=== PATIENT | male | born 1940 | race Caucasian/White ===

== ENCOUNTER 2019-02-01 13:34 | Observation (INO) | payer MEDICARE, OTHER, SELFPAY ==
[2019-02-01] VITALS (9 sets, daily range): BP systolic 143–171; BP diastolic 52–82; PULSE 20–58; RESP 12–22; TEMP 36.5–36.8; O2SAT 97–100; BMI 20.3
--- NOTE | 2019-02-01 13:41 | DI.CT.S_ITS ---
PROCEDURE: CT HEAD/BRAIN WO CON INDICATIONS: Code stroke. Possible TPA TECHNIQUE: Noncontrast 4.5 mm thick angled axial sections acquired from the foramen magnum to the vertex, with coronal and sagittal reformats. For radiation dose reduction, the following was used: automated exposure control, adjustment of mA and/or kV according to patient size. COMPARISON: [facility], MR, MR BRAIN WITHOUT CONTRAST, 11/21/2018, 17:06. FINDINGS: Image quality: Excellent. CSF spaces: Basal cisterns are patent. No extra-axial fluid collections. The ventricles are symmetric in size and shape. Brain: No intracranial bleeds or masses. There is a minimal cerebral volume loss for age, with resultant ventricular and sulcal prominence. There are minimal periventricular and deep white matter chronic small vessel ischemic changes. There is intracranial internal carotid artery atherosclerosis. Skull and face: Calvarium and visualized facial bones appear intact, without suspicious lesions. Sinuses: Visualized sinuses and mastoids are clear. IMPRESSION: CT head without acute intracranial abnormalities. Stable age-related senescent changes. Findings were verbally communicated with Dr. Gold of the emergency department at 1404hrs. Dictated by: Casper Skelton M.D. on 02/01/2019 at 14:02 Approved by: Casper Skelton M.D. on 02/01/2019 at 14:06
[2019-02-01 13:59] LABS: Add Manual Diff / Slide Review NO; Basophils Absolute Auto 100 /uL (0-100); Basophils Percent Auto 1.3 % (0-2); Eosinophils Absolute Auto 100 /uL (0-450); Eosinophils Percent Auto 2.2 % (2-4); Hematocrit 39.8 % (41-53); Hemoglobin 13.8 g/dL (13.5-17.5); Lymphocytes Absolute Auto 1200 /uL (1100-4500); Lymphocytes Percent Auto 21.7 % (25-40); Mean Corpuscular HGB Conc 34.6 % (30-36); Mean Corpuscular Hemoglobin 30.9 PG (26-34); Mean Corpuscular Volume 89.4 fL (80-100); Monocytes Absolute Auto 400 /uL (0-900); Neutrophils Absolute Auto 3600 /uL (1500-7000); Neutrophils Percent Auto 67.8 % (50-75); Platelet Count 143 X10^3/uL (150-400); Red Blood Cell Count 4.45 X10^6/uL (4.5-5.9); Red Cell Distribution Width 13.2 % (11.6-14.8); White Blood Cell Count 5.3 X10^3/uL (4.5-11.0)
--- NOTE | 2019-02-01 14:08 | ED.DIZZY ---
HPI - Dizziness General Chief Complaint: Dizziness Stated Complaint: Light headed and dizzy Time Seen by Provider: 02/01/19 13:36 Source: patient and family Mode of arrival: ambulatory Limitations: no limitations History of Present Illness HPI Narrative: 78-year-old male with history of hypertension, hyperlipidemia and GERD presents with a chief complaint of sudden-onset significant dizziness and ataxia which started at about 10 30 this afternoon. He denies any other problems such as blurred vision, trouble with speech, confusion or weakness of his extremities. He states that he is likely more dizzy upon standing but it does not improve much when he lays flat. He states he feels like he is drunk and when he walks he is listing to the side. Patient is BEFAST positive and therefore activated as a code stroke. Patient denies any recent illness such as runny nose, sneezing or cough. He denies any nausea, vomiting or diarrhea. He denies any new medications or change in his diet. He denies any recent trauma, even minor bump to the head. MD complaint: dizziness Onset (ago): hour(s) Timing: sudden onset Description: room spinning, off-balance and difficulty walking History of similar episodes: No History of trauma: No Severity: mild Relieving factors: nothing Exacerbating factors: position Associated symptoms: ataxia Related Data Home Medications Medication Instructions Recorded Confirmed losartan 50 mg PO QDAY #0 03/01/12 02/01/19 simvastatin 40 mg PO HS #0 03/01/12 02/01/19 levothyroxine 112 mcg PO DAILY 02/01/19 02/01/19 Allergies Allergy/AdvReac Type Severity Reaction Status Date / Time No Known Drug Allergies Allergy Verified 02/01/19 17:03 Review of Systems Constitutional Denies chills, Denies fever(s), Denies lethargy and Denies weakness Eyes Denies change in vision, Denies eye discharge, Denies irritation and Denies loss of vision ENT Ears, Nose, Mouth, and Throat: Denies change in voice, Reports dizziness, Denies neck pain and Denies sore throat Cardiovascular Denies chest pain, Denies irregular heart rhythm, Denies lightheadedness, Denies palpitations, Denies dyspnea, Denies dyspnea on exertion and Denies orthopnea Respiratory Denies cough, Denies dyspnea, Denies dyspnea on exertion and Denies wheezing Gastrointestinal Gastrointestinal: Denies abdominal pain, Denies change in bowel habits, Denies diarrhea, Denies nausea and Denies vomiting Genitourinary Denies hematuria, Denies flank pain, Denies urinary incontinence and Denies urinary urgency Musculoskeletal Reports abnormal gait and Denies neck pain Integumentary/Breasts Denies pruritus, Denies erythema, Denies rash and Denies wounds Neurologic Reports abnormal gait, Denies confusion, Reports dizziness, Denies loss of vision and Denies weakness Psychiatric Denies anxiety, Denies confusion, Denies depression, Denies homicidal ideation and Denies suicidal ideation Endocrine Denies palpitations Hematologic/Lymphatic Denies easy bruising Allergic/Immunologic Denies wheezing [facility] Medical History (Updated 02/01/19 @ 19:05 by Manda Lund RN) Hyperlipidemia (Acute) Hypertension (Acute) Hypothyroidism (acquired) (Acute) Surgical History (Updated 02/01/19 @ 18:36 by Narendra Gillespie MD) History of appendectomy (Acute) Family History (Updated 02/01/19 @ 18:36 by Narendra Gillespie MD) Mother Dementia Myocardial infarct Father No problems noted. Social History household members: spouse Smoking Status: Former smoker alcohol intake: current Social History household members: spouse Smoking Status: Former smoker alcohol intake: current Exam Narrative Exam Narrative: GENERAL: 78-year-old male appears younger than stated age, in mild distress HEAD: Atraumatic. Normocephalic. No temporal or scalp tenderness. EYES: Pupils equal round and reactive. Extraocular motions intact. No scleral icterus. No injection or drainage. ENT: Nose without bleeding, purulent drainage or septal hematoma. Throat without erythema, tonsillar hypertrophy or exudate. Uvula midline. Airway patent. NECK: Trachea midline. No JVD or lymphadenopathy. Supple, nontender, no meningeal signs. CARDIOVASCULAR: Regular rate and rhythm without murmurs, gallops, or rubs. RESPIRATORY: Clear to auscultation. Breath sounds equal bilaterally. No wheezes, rales, or rhonchi. GASTROINTESTINAL: Abdomen soft, non-tender, nondistended. No hepato-splenomegaly, or palpable masses. No guarding. EXTREMITIES: No clubbing, cyanosis, or edema. No joint tenderness, effusion, or edema noted. BACK: Nontender without deformity or crepitance. No flank tenderness. NEURO: AOx3. SKIN: No rash or erythema. Initial Vital Signs Initial Vital Signs: Vital Signs Temperature 98.2 F 02/01/19 13:35 Pulse Rate 58 L 02/01/19 13:35 Respiratory Rate 16 02/01/19 13:35 Blood Pressure 160/67 H 02/01/19 13:35 Pulse Oximetry 99 02/01/19 13:35 Course Orders Ordered: ED Orders 02/02/19 04:59 Magnesium Routine Aspirin (Aspirin Ec) 81 mg PO BEDTIME [facility]REM Last Admin: 02/01/19 21:25 Dose: Not Given Enoxaparin Sodium (Lovenox) 40 mg SUBCUT DAILY [facility] Hydrochlorothiazide (Hydrochlorothiazide) 25 mg PO DAILY [facility] Sodium Chloride (Normal Saline 0.9%) 1,000 mls @ 150 mls/hr IV CONT [facility]REM Last Infusion: 02/01/19 19:02 Dose: 150 mls/hr Infusion: 02/01/19 16:44 Dose: 150 mls/hr Infusion: 02/01/19 15:00 Dose: 0 mls/hr Admin: 02/01/19 14:39 Dose: 150 mls/hr Dextrose/Sodium Chloride (Dextrose 5%-0.9% Ns) 1,000 mls @ 75 mls/hr IV CONT [facility]REM Last Admin: 02/01/19 19:42 Dose: 75 mls/hr Levothyroxine Sodium (Synthroid) 112 mcg PO 0600 [facility] Last Admin: 02/02/19 05:22 Dose: 112 mcg Losartan Potassium (Cozaar) 50 mg PO DAILY [facility] Ondansetron HCl (Zofran) 4 mg IV Q8HR PRN PRN Reason: Nausea And Vomiting Pantoprazole Sodium (Protonix) 20 mg PO 0600 [facility] Last Admin: 02/02/19 05:22 Dose: 20 mg Simvastatin (Zocor) 40 mg PO BEDTIME [facility]REM Last Admin: 02/01/19 21:26 Dose: 40 mg Sodium Chloride (Normal Saline 0.9% Flush) 10 ml IV PRN PRN PRN Reason: Flush Last Admin: 02/01/19 21:00 Dose: 10 ml Sodium Chloride (Normal Saline 0.9% Flush) 10 ml IV BID [facility]REM Discontinued Medications Aspirin (Aspirin Chew) 324 mg PO NOW ONE Stop: 02/01/19 14:14 Last Admin: 02/01/19 14:39 Dose: 324 mg Meclizine HCl (Antivert) 25 mg PO NOW ONE Stop: 02/01/19 16:50 Last Admin: 02/01/19 17:04 Dose: 25 mg Reevaluation(s) Reevaluation #1: patient continues to feel as if he is drunk while walking, listing to the left Consultations Consultation #1: upon completion of CT/MRI and HINTS exam, call to [facility] Neuro whom shares the opinion that the ongoing trouble ambulating cannot be ignored and recommends admission with tele and echo Vital Signs - 8 hr 02/02/19 05:19 02/02/19 07:25 Temperature 97.4 F L 97.8 F Pulse Rate 47 L 51 L Respiratory Rate 15 16 Blood Pressure 140/60 138/61 Pulse Oximetry 99 99 MDM - Dizziness Lab Data Result diagrams: 02/01/19 13:49 02/01/19 13:49 Lab Results 02/01/19 02/01/19 02/01/19 Range/Units 13:49 13:49 13:49 WBC 5.3 (4.5-11.0) X10^3/uL RBC 4.45 L (4.5-5.9) X10^6/uL Hgb 13.8 (13.5-17.5) g/dL Hct 39.8 L (41-53) % MCV 89.4 (80-100) fL MCH 30.9 (26-34) PG MCHC 34.6 (30-36) % RDW 13.2 (11.6-14.8) % Plt Count 143 L (150-400) X10^3/uL Neut % (Auto) 67.8 (50-75) % Lymph % (Auto) 21.7 L (25-40) % [place] % (Auto) 7.0 (3-14) % Eos % (Auto) 2.2 (2-4) % Baso % (Auto) 1.3 (0-2) % Neut # (Auto) 3600 (2124-7903) /uL Lymph # (Auto) 1200 (3219-7977) /uL [place] # (Auto) 400 (0-900) /uL Eos # (Auto) 100 (0-450) /uL Baso # (Auto) 100 (0-100) /uL PT 12.4 (10.1-12.7) SECONDS INR 1.1 (0.9-1.3) APTT 31 (26.4-36.2) SECONDS Sodium 138 (137-145) mmol/L Potassium 3.9 (3.4-5.1) mmol/L Chloride 104 (98-107) mmol/L Carbon Dioxide 27 (22-32) mmol/L BUN 20 (9-20) mg/dL Creatinine 1.00 (0.66-1.25) mg/dL Estimated GFR > 60.0 (>60) mL/min BUN/Creatinine Ratio 20.0 (6-22) Glucose 126 H (80-110) mg/dL Calcium 9.7 (8.4-10.2) mg/dL Magnesium (1.6-2.3) mg/dL TSH (0.47-4.68) uIU/mL Urine Opiates Screen (Negative) Ur Oxycodone Screen (Negative) Urine Methadone Screen (Negative) Ur Barbiturates Screen (Negative) U Tricyclic Antidepress (Negative) Ur Phencyclidine Scrn (Negative) Ur Amphetamines Screen (Negative) U Methamphetamines Scrn (Negative) Ur MDMA Scrn (Ecstasy) (Negative) U Benzodiazepines Scrn (Negative) Urine Cocaine Screen (Negative) U Marijuana (THC) Screen (Negative) 02/01/19 02/01/19 02/01/19 Range/Units 13:49 13:49 17:51 WBC (4.5-11.0) X10^3/uL RBC (4.5-5.9) X10^6/uL Hgb (13.5-17.5) g/dL Hct (41-53) % MCV (80-100) fL MCH (26-34) PG MCHC (30-36) % RDW (11.6-14.8) % Plt Count (150-400) X10^3/uL Neut % (Auto) (50-75) % Lymph % (Auto) (25-40) % [place] % (Auto) (3-14) % Eos % (Auto) (2-4) % Baso % (Auto) (0-2) % Neut # (Auto) (8904-3426) /uL Lymph # (Auto) (8490-0069) /uL [place] # (Auto) (0-900) /uL Eos # (Auto) (0-450) /uL Baso # (Auto) (0-100) /uL PT (10.1-12.7) SECONDS INR (0.9-1.3) APTT (26.4-36.2) SECONDS Sodium (137-145) mmol/L Potassium (3.4-5.1) mmol/L Chloride (98-107) mmol/L Carbon Dioxide (22-32) mmol/L BUN (9-20) mg/dL Creatinine (0.66-1.25) mg/dL Estimated GFR (>60) mL/min BUN/Creatinine Ratio (6-22) Glucose (80-110) mg/dL Calcium (8.4-10.2) mg/dL Magnesium 2.0 (1.6-2.3) mg/dL TSH 1.02 (0.47-4.68) uIU/mL Urine Opiates Screen Negative (Negative) Ur Oxycodone Screen Negative (Negative) Urine Methadone Screen Negative (Negative) Ur Barbiturates Screen Negative (Negative) U Tricyclic Antidepress Negative (Negative) Ur Phencyclidine Scrn Negative (Negative) Ur Amphetamines Screen Negative (Negative) U Methamphetamines Scrn Negative (Negative) Ur MDMA Scrn (Ecstasy) Negative (Negative) U Benzodiazepines Scrn Negative (Negative) Urine Cocaine Screen Negative (Negative) U Marijuana (THC) Screen Negative (Negative) 02/02/19 Range/Units 04:59 WBC (4.5-11.0) X10^3/uL RBC (4.5-5.9) X10^6/uL Hgb (13.5-17.5) g/dL Hct (41-53) % MCV (80-100) fL MCH (26-34) PG MCHC (30-36) % RDW (11.6-14.8) % Plt Count (150-400) X10^3/uL Neut % (Auto) (50-75) % Lymph % (Auto) (25-40) % [place] % (Auto) (3-14) % Eos % (Auto) (2-4) % Baso % (Auto) (0-2) % Neut # (Auto) (6484-2877) /uL Lymph # (Auto) (0273-3170) /uL [place] # (Auto) (0-900) /uL Eos # (Auto) (0-450) /uL Baso # (Auto) (0-100) /uL PT (10.1-12.7) SECONDS INR (0.9-1.3) APTT (26.4-36.2) SECONDS Sodium (137-145) mmol/L Potassium (3.4-5.1) mmol/L Chloride (98-107) mmol/L Carbon Dioxide (22-32) mmol/L BUN (9-20) mg/dL Creatinine (0.66-1.25) mg/dL Estimated GFR (>60) mL/min BUN/Creatinine Ratio (6-22) Glucose (80-110) mg/dL Calcium (8.4-10.2) mg/dL Magnesium 1.9 (1.6-2.3) mg/dL TSH (0.47-4.68) uIU/mL Urine Opiates Screen (Negative) Ur Oxycodone Screen (Negative) Urine Methadone Screen (Negative) Ur Barbiturates Screen (Negative) U Tricyclic Antidepress (Negative) Ur Phencyclidine Scrn (Negative) Ur Amphetamines Screen (Negative) U Methamphetamines Scrn (Negative) Ur MDMA Scrn (Ecstasy) (Negative) U Benzodiazepines Scrn (Negative) Urine Cocaine Screen (Negative) U Marijuana (THC) Screen (Negative) Point of Care Testing Glucose POC 136 Urine Dip Bedside Urine Glucose Negative Bedside Urine Bilirubin - Negative Bedside Urine Ketone - Negative Urine Specific [place] 1.015 Bedside Urine Occult Blood - Negative Bedside Urine pH 7.5 Bedside Urine Protein - Negative Bedside Urine Urobilinogen +/- 1mg Bedside Urine Nitrite - Negative Bedside Urine Leukocytes - Negative Esterase Imaging Data MRI Head: Radiologist's impression: [address] [address] Magnetic Resonance Report Signed Patient: Jesus Manuel Shafer RMR#: [id number] : 1941Acct:[id number] Age/Sex: 78 / MDate of Service: 02/01/19 Loc: ED Accession Number: [id number] Procedure: MR stroke Ordering Provider: Juanito Gold D.O. PROCEDURE: MR STROKE Pre- and post-contrast brain MRI, non-contrast brain MR angiogram, pre- and postcontrast neck MR angiogram INDICATIONS: stroke symptoms, ataxia TECHNIQUE: Brain: Noncontrast axial T1 spin echo, axial T2 fast spin echo, sagittal and axial FLAIR, coronal T2 fast spin echo, axial gradient echo, axial diffusion and ADC through the brain. After the administration of contrast, axial 3D VIBE of the cranial vasculature and brain. Brain MRA: Non-contrast 3-D time of flight MR angiogram, with multiple xondjvz-cpckhuupj-fshntqwaso (MIP) reformats performed. Neck MRA: Axial and sagittal TruFISP through the neck. Coronal dynamic MR angiogram during administration of contrast in the arterial and venous phases, with 3-dimenstional bwrukqy-exwrivxia-qazzfgwqwf (MIP) reformats constructed from subtraction images. COMPARISON: [facility], CT, CT HEAD/BRAIN WO CON, 02/01/2019, 13:50. FINDINGS: Image quality: Excellent. BRAIN: CSF spaces: Ventricles are normal in size and shape. Basal cisterns are patent. Note is made of an apparent arachnoid cyst at the posterior aspect of the posterior fossa. Brain: No intracranial bleeds or mass effects. Swain-white matter interface is normal. Diffusion weighted images show no acute ischemic insults. Brain parenchymal volume loss is seen. Scattered foci of T2 weighted hyperintensity are seen within the periventricular and the deep white matter. Brainstem appears normal. Normal intravascular flow voids are present. No abnormal intracranial enhancement. Skull and face: Calvarial marrow signal is normal. Orbits appear normal. Note is made of bilateral lens replacements. Sinuses: Sinuses and mastoids are clear. There is a right sided joss bullosa, with associated mild leftward nasal septal deviation. BRAIN MR ANGIOGRAM: Anterior circulation: Intracranial internal carotid arteries are normal in size and enhancement. The flow within the paired anterior cerebral arteries is normal and symmetric. The flow within the middle cerebral arteries is normal and symmetric. The anterior communicating artery is seen. No stenoses, occlusions, or aneurysms. Posterior circulation: The visualized portions of the vertebral arteries demonstrate normal caliber, and join to form a normal appearing basilar artery. The flow within the posterior cerebral arteries is normal and symmetric. No stenoses, occlusions, or aneurysms. NECK MR ANGIOGRAM: Carotids: Great vessels demonstrate a conventional anatomy as they arise from the aortic arch. The origins of the common carotid arteries appear patent. The calibers and courses of both common carotid arteries are normal. The bifurcation regions appear normal bilaterally. The internal carotid arteries demonstrate normal course and caliber. Posterior circulation: The origins of the vertebral arteries appear patent. The proximal vertebral arteries are tortuous. More superior portions of both vertebral arteries demonstrate normal caliber, and join to form a normal appearing basilar artery. Miscellaneous: Subclavian arteries appear patent. Pre-contrast images through the neck show no soft tissue abnormalities. IMPRESSION: BRAIN MRI: No findings of acute or subacute infarction can be seen. No masses or abnormal enhancement can be seen. Note is made of age-appropriate brain parenchymal volume loss and chronic small vessel ischemic changes. BRAIN MR ANGIOGRAM: No significant intracranial arterial abnormality is seen. NECK MR ANGIOGRAM: Within the arteries of the neck, no hemodynamically significant stenosis can be seen. Dictated by: Matt Joy M.D. on 02/01/2019 at 15:21 Approved by: Matt Joy M.D. on 02/01/2019 at 15:27 CT scan - head: Radiologist's impression: [facility] DATE TYPE STATUS AUTHOR Hx 02/01/19 18:39 Elizabeth Vick 02/01/19 14:13 Matt Joy 02/01/19 13:41 Casper Skelton Murray R 78, M0 1940 ADM LETTY, AC 214 -1 170.18cm 60.7kg BMI: 21.0kg/m? Search Chart ONSET Today 07:25 Jesus Manuel Shafer 1940 [place] [address] CT Scan Report Signed Patient: HollisJesus Manuel RMR#: [id number] : 9Acct:[id number] Age/Sex: 78 / MDate of Service: 02/01/19 Loc: ED Accession Number: [id number] Procedure: CT head/brain wo con Ordering Provider: Juanito Gold D.O. PROCEDURE: CT HEAD/BRAIN WO CON INDICATIONS: Code stroke. Possible TPA TECHNIQUE: Noncontrast 4.5 mm thick angled axial sections acquired from the foramen magnum to the vertex, with coronal and sagittal reformats. For radiation dose reduction, the following was used: automated exposure control, adjustment of mA and/or kV according to patient size. COMPARISON: [facility], MR, MR BRAIN WITHOUT CONTRAST, 11/21/2018, 17:06. FINDINGS: Image quality: Excellent. CSF spaces: Basal cisterns are patent. No extra-axial fluid collections. The ventricles are symmetric in size and shape. Brain: No intracranial bleeds or masses. There is a minimal cerebral volume loss for age, with resultant ventricular and sulcal prominence. There are minimal periventricular and deep white matter chronic small vessel ischemic changes. There is intracranial internal carotid artery atherosclerosis. Skull and face: Calvarium and visualized facial bones appear intact, without suspicious lesions. Sinuses: Visualized sinuses and mastoids are clear. IMPRESSION: CT head without acute intracranial abnormalities. Stable age-related senescent changes. Findings were verbally communicated with Dr. Gold of the emergency department at 1404hrs. Dictated by: Casper Skelton M.D. on 02/01/2019 at 14:02 Approved by: Casper Skelton M.D. on 02/01/2019 at 14:06 ECG Data Attestation: I personally reviewed and interpreted this ECG as follows: Prior ECG tracings: not available for review Interpretation: Sinus pao 51. No ectopy or signs of ischemia MDM Narrative Medical decision making narrative: 78M with HTN, hyperlipidemia presents with dizziness sudden in onset and unprovoked. His NIHSS is 0, head CT clear, and MRI unremarkable. NO sugestion of peripheral cause. Unchanged by position. Remains dizzy when sitting still. Patient does have some episodes of HR in the 40s, largely in low 50s, but demonstrates no change in symptoms with fluctuation in HR Discharge Plan Departure Patient Disposition: Admitted as Observation Clinical Impression: TIA (transient ischemic attack) Discharge Date/Time: 02/01/19 19:00 Interventions: ED Discharge Assessment Last Done: 02/01/19 19:05 Admit Date/Time: 02/01/19 17:52 Admit Provider: Narendra Gillespie
[2019-02-01 14:13] LABS: Blood Urea Nitrogen 20 mg/dL (9-20); Calcium 9.7 mg/dL (8.4-10.2); Carbon Dioxide 27 mmol/L (22-32); Chloride 104 mmol/L (98-107); Estimated Glomerular Filt Rate > 60.0 mL/min (>60); Glucose 126 mg/dL (80-110); HEMOLYSIS < 15 (0-50); Potassium 3.9 mmol/L (3.4-5.1); Sodium 138 mmol/L (137-145)
--- NOTE | 2019-02-01 14:13 | DI.MRI.S_ITS ---
PROCEDURE: MR STROKE Pre- and post-contrast brain MRI, non-contrast brain MR angiogram, pre- and postcontrast neck MR angiogram INDICATIONS: stroke symptoms, ataxia TECHNIQUE: Brain: Noncontrast axial T1 spin echo, axial T2 fast spin echo, sagittal and axial FLAIR, coronal T2 fast spin echo, axial gradient echo, axial diffusion and ADC through the brain. After the administration of contrast, axial 3D VIBE of the cranial vasculature and brain. Brain MRA: Non-contrast 3-D time of flight MR angiogram, with multiple oooeeuo-gionzzfuw-lolwlopejh (MIP) reformats performed. Neck MRA: Axial and sagittal TruFISP through the neck. Coronal dynamic MR angiogram during administration of contrast in the arterial and venous phases, with 3-dimenstional gibzjzf-omblgsbcp-aodlvipkff (MIP) reformats constructed from subtraction images. COMPARISON: [facility], CT, CT HEAD/BRAIN WO CON, 02/01/2019, 13:50. FINDINGS: Image quality: Excellent. BRAIN: CSF spaces: Ventricles are normal in size and shape. Basal cisterns are patent. Note is made of an apparent arachnoid cyst at the posterior aspect of the posterior fossa. Brain: No intracranial bleeds or mass effects. Swain-white matter interface is normal. Diffusion weighted images show no acute ischemic insults. Brain parenchymal volume loss is seen. Scattered foci of T2 weighted hyperintensity are seen within the periventricular and the deep white matter. Brainstem appears normal. Normal intravascular flow voids are present. No abnormal intracranial enhancement. Skull and face: Calvarial marrow signal is normal. Orbits appear normal. Note is made of bilateral lens replacements. Sinuses: Sinuses and mastoids are clear. There is a right sided joss bullosa, with associated mild leftward nasal septal deviation. BRAIN MR ANGIOGRAM: Anterior circulation: Intracranial internal carotid arteries are normal in size and enhancement. The flow within the paired anterior cerebral arteries is normal and symmetric. The flow within the middle cerebral arteries is normal and symmetric. The anterior communicating artery is seen. No stenoses, occlusions, or aneurysms. Posterior circulation: The visualized portions of the vertebral arteries demonstrate normal caliber, and join to form a normal appearing basilar artery. The flow within the posterior cerebral arteries is normal and symmetric. No stenoses, occlusions, or aneurysms. NECK MR ANGIOGRAM: Carotids: Great vessels demonstrate a conventional anatomy as they arise from the aortic arch. The origins of the common carotid arteries appear patent. The calibers and courses of both common carotid arteries are normal. The bifurcation regions appear normal bilaterally. The internal carotid arteries demonstrate normal course and caliber. Posterior circulation: The origins of the vertebral arteries appear patent. The proximal vertebral arteries are tortuous. More superior portions of both vertebral arteries demonstrate normal caliber, and join to form a normal appearing basilar artery. Miscellaneous: Subclavian arteries appear patent. Pre-contrast images through the neck show no soft tissue abnormalities. IMPRESSION: BRAIN MRI: No findings of acute or subacute infarction can be seen. No masses or abnormal enhancement can be seen. Note is made of age-appropriate brain parenchymal volume loss and chronic small vessel ischemic changes. BRAIN MR ANGIOGRAM: No significant intracranial arterial abnormality is seen. NECK MR ANGIOGRAM: Within the arteries of the neck, no hemodynamically significant stenosis can be seen. Dictated by: Matt Joy M.D. on 02/01/2019 at 15:21 Approved by: Matt Joy M.D. on 02/01/2019 at 15:27
[2019-02-01 14:15] LABS: INR 1.1 (0.9-1.3); Prothrombin Time 12.4 SECONDS (10.1-12.7)
[2019-02-01 14:18] LABS: PTT Partial Thromboplastin Tim 31 SECONDS (26.4-36.2)
[2019-02-01] MEDS: ASPIRIN 81 MG TAB 324 MG PO (14:39)
[2019-02-01] MEDS: SODIUM CHLORIDE 0.9% 1,000 ML 150 ML IV (14:39)
--- NOTE | 2019-02-01 15:28 | ED_ITS ---
HPI - Dizziness General Chief Complaint: Dizziness Stated Complaint: Light headed and dizzy Time Seen by Provider: 02/01/19 13:36 Source: patient and family Mode of arrival: ambulatory Limitations: no limitations History of Present Illness HPI Narrative: 78-year-old male with history of hypertension, hyperlipidemia and GERD presents with a chief complaint of sudden-onset significant dizziness and ataxia which started at about 10 30 this afternoon. He denies any other problems such as blurred vision, trouble with speech, confusion or weakness of his extremities. He states that he is likely more dizzy upon standing but it does not improve much when he lays flat. He states he feels like he is drunk and when he walks he is listing to the side. Patient is BEFAST positive and therefore activated as a code stroke. Patient denies any recent illness such as runny nose, sneezing or cough. He denies any nausea, vomiting or diarrhea. He denies any new medications or change in his diet. He denies any recent trauma, even minor bump to the head. MD complaint: dizziness Onset (ago): hour(s) Timing: sudden onset Description: room spinning, off-balance and difficulty walking History of similar episodes: No History of trauma: No Severity: mild Relieving factors: nothing Exacerbating factors: position Associated symptoms: ataxia Related Data Home Medications Medication Instructions Recorded Confirmed losartan 50 mg PO QDAY #0 03/01/12 02/01/19 simvastatin 40 mg PO HS #0 03/01/12 02/01/19 levothyroxine 112 mcg PO DAILY 02/01/19 02/01/19 Allergies Allergy/AdvReac Type Severity Reaction Status Date / Time No Known Drug Allergies Allergy Verified 02/01/19 17:03 Review of Systems Constitutional Denies chills, Denies fever(s), Denies lethargy and Denies weakness Eyes Denies change in vision, Denies eye discharge, Denies irritation and Denies loss of vision ENT Ears, Nose, Mouth, and Throat: Denies change in voice, Reports dizziness, Denies neck pain and Denies sore throat Cardiovascular Denies chest pain, Denies irregular heart rhythm, Denies lightheadedness, Denies palpitations, Denies dyspnea, Denies dyspnea on exertion and Denies orthopnea Respiratory Denies cough, Denies dyspnea, Denies dyspnea on exertion and Denies wheezing Gastrointestinal Gastrointestinal: Denies abdominal pain, Denies change in bowel habits, Denies diarrhea, Denies nausea and Denies vomiting Genitourinary Denies hematuria, Denies flank pain, Denies urinary incontinence and Denies urinary urgency Musculoskeletal Reports abnormal gait and Denies neck pain Integumentary/Breasts Denies pruritus, Denies erythema, Denies rash and Denies wounds Neurologic Reports abnormal gait, Denies confusion, Reports dizziness, Denies loss of vision and Denies weakness Psychiatric Denies anxiety, Denies confusion, Denies depression, Denies homicidal ideation and Denies suicidal ideation Endocrine Denies palpitations Hematologic/Lymphatic Denies easy bruising Allergic/Immunologic Denies wheezing FORMERLY [facility], 1928–1983 Medical History (Updated 02/01/19 @ 19:05 by Manda Lund RN) Hyperlipidemia (Acute) Hypertension (Acute) Hypothyroidism (acquired) (Acute) Surgical History (Updated 02/01/19 @ 18:36 by Narendra Gillespie MD) History of appendectomy (Acute) Family History (Updated 02/01/19 @ 18:36 by Narendra Gillespie MD) Mother Dementia Myocardial infarct Father No problems noted. Social History household members: spouse Smoking Status: Former smoker alcohol intake: current Social History household members: spouse Smoking Status: Former smoker alcohol intake: current Exam Narrative Exam Narrative: GENERAL: 78-year-old male appears younger than stated age, in mild distress HEAD: Atraumatic. Normocephalic. No temporal or scalp tenderness. EYES: Pupils equal round and reactive. Extraocular motions intact. No scleral icterus. No injection or drainage. ENT: Nose without bleeding, purulent drainage or septal hematoma. Throat without erythema, tonsillar hypertrophy or exudate. Uvula midline. Airway patent. NECK: Trachea midline. No JVD or lymphadenopathy. Supple, nontender, no meningeal signs. CARDIOVASCULAR: Regular rate and rhythm without murmurs, gallops, or rubs. RESPIRATORY: Clear to auscultation. Breath sounds equal bilaterally. No wheezes, rales, or rhonchi. GASTROINTESTINAL: Abdomen soft, non-tender, nondistended. No hepato-spleno megaly, or palpable masses. No guarding. EXTREMITIES: No clubbing, cyanosis, or edema. No joint tenderness, effusion, or edema noted. BACK: Nontender without deformity or crepitance. No flank tenderness. NEURO: AOx3. SKIN: No rash or erythema. Initial Vital Signs Initial Vital Signs: Vital Signs Temperature 98.2 F 02/01/19 13:35 Pulse Rate 58 L 02/01/19 13:35 Respiratory Rate 16 02/01/19 13:35 Blood Pressure 160/67 H 02/01/19 13:35 Pulse Oximetry 99 02/01/19 13:35 Course Orders Ordered: ED Orders 02/02/19 04:59 Magnesium Routine Aspirin (Aspirin Ec) 81 mg PO BEDTIME PENDING SALE TO [facility] Last Admin: 02/01/19 21:25 Dose: Not Given Enoxaparin Sodium (Lovenox) 40 mg SUBCUT DAILY EFREM Hydrochlorothiazide (Hydrochlorothiazide) 25 mg PO DAILY EFREM Sodium Chloride (Normal Saline 0.9%) 1,000 mls @ 150 mls/hr IV CONT EFREM Last Infusion: 02/01/19 19:02 Dose: 150 mls/hr Infusion: 02/01/19 16:44 Dose: 150 mls/hr Infusion: 02/01/19 15:00 Dose: 0 mls/hr Admin: 02/01/19 14:39 Dose: 150 mls/hr Dextrose/Sodium Chloride (Dextrose 5%-0.9% Ns) 1,000 mls @ 75 mls/hr IV CONT EFREM Last Admin: 02/01/19 19:42 Dose: 75 mls/hr Levothyroxine Sodium (Synthroid) 112 mcg PO 0600 PENDING SALE TO [facility] Last Admin: 02/02/19 05:22 Dose: 112 mcg Losartan Potassium (Cozaar) 50 mg PO DAILY PENDING SALE TO [facility] Ondansetron HCl (Zofran) 4 mg IV Q8HR PRN PRN Reason: Nausea And Vomiting Pantoprazole Sodium (Protonix) 20 mg PO 0600 PENDING SALE TO [facility] Last Admin: 02/02/19 05:22 Dose: 20 mg Simvastatin (Zocor) 40 mg PO BEDTIME PENDING SALE TO [facility] Last Admin: 02/01/19 21:26 Dose: 40 mg Sodium Chloride (Normal Saline 0.9% Flush) 10 ml IV PRN PRN PRN Reason: Flush Last Admin: 02/01/19 21:00 Dose: 10 ml Sodium Chloride (Normal Saline 0.9% Flush) 10 ml IV BID EFREM Discontinued Medications Aspirin (Aspirin Chew) 324 mg PO NOW ONE Stop: 02/01/19 14:14 Last Admin: 02/01/19 14:39 Dose: 324 mg Meclizine HCl (Antivert) 25 mg PO NOW ONE Stop: 02/01/19 16:50 Last Admin: 02/01/19 17:04 Dose: 25 mg Reevaluation(s) Reevaluation #1: patient continues to feel as if he is drunk while walking, listing to the left Consultations Consultation #1: upon completion of CT/MRI and HINTS exam, call to [facility] whom shares the opinion that the ongoing trouble ambulating cannot be ignored and recommends admission with tele and echo Vital Signs - 8 hr 02/02/19 05:19 02/02/19 07:25 Temperature 97.4 F L 97.8 F Pulse Rate 47 L 51 L Respiratory Rate 15 16 Blood Pressure 140/60 138/61 Pulse Oximetry 99 99 MDM - Dizziness Lab Data Result diagrams: 02/01/19 13:49 02/01/19 13:49 Lab Results 02/01/19 02/01/19 02/01/19 Range/Units 13:49 13:49 13:49 WBC 5.3 (4.5-11.0) X10^3/uL RBC 4.45 L (4.5-5.9) X10^6/uL Hgb 13.8 (13.5-17.5) g/dL Hct 39.8 L (41-53) % MCV 89.4 (80-100) fL MCH 30.9 (26-34) PG MCHC 34.6 (30-36) % RDW 13.2 (11.6-14.8) % Plt Count 143 L (150-400) X10^3/uL Neut % (Auto) 67.8 (50-75) % Lymph % (Auto) 21.7 L (25-40) % Baxter % (Auto) 7.0 (3-14) % Eos % (Auto) 2.2 (2-4) % Baso % (Auto) 1.3 (0-2) % Neut # (Auto) 3600 (8428-3509) /uL Lymph # (Auto) 1200 (6601-2678) /uL Baxter # (Auto) 400 (0-900) /uL Eos # (Auto) 100 (0-450) /uL Baso # (Auto) 100 (0-100) /uL PT 12.4 (10.1-12.7) SECONDS INR 1.1 (0.9-1.3) APTT 31 (26.4-36.2) SECONDS Sodium 138 (137-145) mmol/L Potassium 3.9 (3.4-5.1) mmol/L Chloride 104 (98-107) mmol/L Carbon Dioxide 27 (22-32) mmol/L BUN 20 (9-20) mg/dL Creatinine 1.00 (0.66-1.25) mg/dL Estimated GFR > 60.0 (>60) mL/min BUN/Creatinine Ratio 20.0 (6-22) Glucose 126 H (80-110) mg/dL Calcium 9.7 (8.4-10.2) mg/dL Magnesium (1.6-2.3) mg/dL TSH (0.47-4.68) uIU/mL Urine Opiates Screen (Negative) Ur Oxycodone Screen (Negative) Urine Methadone Screen (Negative) Ur Barbiturates Screen (Negative) U Tricyclic Antidepress (Negative) Ur Phencyclidine Scrn (Negative) Ur Amphetamines Screen (Negative) U Methamphetamines Scrn (Negative) Ur MDMA Scrn (Ecstasy) (Negative) U Benzodiazepines Scrn (Negative) Urine Cocaine Screen (Negative) U Marijuana (THC) Screen (Negative) 02/01/19 02/01/19 02/01/19 Range/Units 13:49 13:49 17:51 WBC (4.5-11.0) X10^3/uL RBC (4.5-5.9) X10^6/uL Hgb (13.5-17.5) g/dL Hct (41-53) % MCV (80-100) fL MCH (26-34) PG MCHC (30-36) % RDW (11.6-14.8) % Plt Count (150-400) X10^3/uL Neut % (Auto) (50-75) % Lymph % (Auto) (25-40) % Baxter % (Auto) (3-14) % Eos % (Auto) (2-4) % Baso % (Auto) (0-2) % Neut # (Auto) (4598-8793) /uL Lymph # (Auto) (0820-0733) /uL Baxter # (Auto) (0-900) /uL Eos # (Auto) (0-450) /uL Baso # (Auto) (0-100) /uL PT (10.1-12.7) SECONDS INR (0.9-1.3) APTT (26.4-36.2) SECONDS Sodium (137-145) mmol/L Potassium (3.4-5.1) mmol/L Chloride (98-107) mmol/L Carbon Dioxide (22-32) mmol/L BUN (9-20) mg/dL Creatinine (0.66-1.25) mg/dL Estimated GFR (>60) mL/min BUN/Creatinine Ratio (6-22) Glucose (80-110) mg/dL Calcium (8.4-10.2) mg/dL Magnesium 2.0 (1.6-2.3) mg/dL TSH 1.02 (0.47-4.68) uIU/mL Urine Opiates Screen Negative (Negative) Ur Oxycodone Screen Negative (Negative) Urine Methadone Screen Negative (Negative) Ur Barbiturates Screen Negative (Negative) U Tricyclic Antidepress Negative (Negative) Ur Phencyclidine Scrn Negative (Negative) Ur Amphetamines Screen Negative (Negative) U Methamphetamines Scrn Negative (Negative) Ur MDMA Scrn (Ecstasy) Negative (Negative) U Benzodiazepines Scrn Negative (Negative) Urine Cocaine Screen Negative (Negative) U Marijuana (THC) Screen Negative (Negative) 02/02/19 Range/Units 04:59 WBC (4.5-11.0) X10^3/uL RBC (4.5-5.9) X10^6/uL Hgb (13.5-17.5) g/dL Hct (41-53) % MCV (80-100) fL MCH (26-34) PG MCHC (30-36) % RDW (11.6-14.8) % Plt Count (150-400) X10^3/uL Neut % (Auto) (50-75) % Lymph % (Auto) (25-40) % Baxter % (Auto) (3-14) % Eos % (Auto) (2-4) % Baso % (Auto) (0-2) % Neut # (Auto) (6953-3634) /uL Lymph # (Auto) (0358-0987) /uL Baxter # (Auto) (0-900) /uL Eos # (Auto) (0-450) /uL Baso # (Auto) (0-100) /uL PT (10.1-12.7) SECONDS INR (0.9-1.3) APTT (26.4-36.2) SECONDS Sodium (137-145) mmol/L Potassium (3.4-5.1) mmol/L Chloride (98-107) mmol/L Carbon Dioxide (22-32) mmol/L BUN (9-20) mg/dL Creatinine (0.66-1.25) mg/dL Estimated GFR (>60) mL/min BUN/Creatinine Ratio (6-22) Glucose (80-110) mg/dL Calcium (8.4-10.2) mg/dL Magnesium 1.9 (1.6-2.3) mg/dL TSH (0.47-4.68) uIU/mL Urine Opiates Screen (Negative) Ur Oxycodone Screen (Negative) Urine Methadone Screen (Negative) Ur Barbiturates Screen (Negative) U Tricyclic Antidepress (Negative) Ur Phencyclidine Scrn (Negative) Ur Amphetamines Screen (Negative) U Methamphetamines Scrn (Negative) Ur MDMA Scrn (Ecstasy) (Negative) U Benzodiazepines Scrn (Negative) Urine Cocaine Screen (Negative) U Marijuana (THC) Screen (Negative) Point of Care Testing Glucose POC 136 Urine Dip Bedside Urine Glucose Negative Bedside Urine Bilirubin - Negative Bedside Urine Ketone - Negative Urine Specific [place] 1.015 Bedside Urine Occult Blood - Negative Bedside Urine pH 7.5 Bedside Urine Protein - Negative Bedside Urine Urobilinogen +/- 1mg Bedside Urine Nitrite - Negative Bedside Urine Leukocytes - Negative Esterase Imaging Data MRI Head: Radiologist's impression: [address] [address] Magnetic Resonance Report Signed Patient: Jesus Manuel Shafer RMR#: [id number] : 1941Acct:[id number] Age/Sex: 78 / MDate of Service: 02/01/19 Loc: ED Accession Number: [id number] Procedure: MR stroke Ordering Provider: Juanito Gold D.O. PROCEDURE: MR STROKE Pre- and post-contrast brain MRI, non-contrast brain MR angiogram, pre- and postcontrast neck MR angiogram INDICATIONS: stroke symptoms, ataxia TECHNIQUE: Brain: Noncontrast axial T1 spin echo, axial T2 fast spin echo, sagittal and axial FLAIR, coronal T2 fast spin echo, axial gradient echo, axial diffusion and ADC through the brain. After the administration of contrast, axial 3D VIBE of the cranial vasculature and brain. Brain MRA: Non-contrast 3-D time of flight MR angiogram, with multiple dvrbhuy-goviqulng-hcwtrsbpof (MIP) reformats performed. Neck MRA: Axial and sagittal TruFISP through the neck. Coronal dynamic MR angiogram during administration of contrast in the arterial and venous phases, with 3- dimenstional unvapsp-ykneruanx-rqjzxriqjw (MIP) reformats constructed from subtraction images. COMPARISON: [facility], CT, CT HEAD/BRAIN WO CON, 02/01/2019, 13:50. FINDINGS: Image quality: Excellent. BRAIN: CSF spaces: Ventricles are normal in size and shape. Basal cisterns are patent. Note is made of an apparent arachnoid cyst at the posterior aspect of the posterior fossa. Brain: No intracranial bleeds or mass effects. Swain-white matter interface is normal. Diffusion weighted images show no acute ischemic insults. Brain parenchymal volume loss is seen. Scattered foci of T2 weighted hyperintensity are seen within the periventricular and the deep white matter. Brainstem appears normal. Normal intravascular flow voids are present. No abnormal intracranial enhancement. Skull and face: Calvarial marrow signal is normal. Orbits appear normal. Note is made of bilateral lens replacements. Sinuses: Sinuses and mastoids are clear. There is a right sided joss bullosa, with associated mild leftward nasal septal deviation. BRAIN MR ANGIOGRAM: Anterior circulation: Intracranial internal carotid arteries are normal in size and enhancement. The flow within the paired anterior cerebral arteries is normal and symmetric. The flow within the middle cerebral arteries is normal and symmetric. The anterior communicating artery is seen. No stenoses, occlusions, or aneurysms. Posterior circulation: The visualized portions of the vertebral arteries demonstrate normal caliber, and join to form a normal appearing basilar artery. The flow within the posterior cerebral arteries is normal and symmetric. No stenoses, occlusions, or aneurysms. NECK MR ANGIOGRAM: Carotids: Great vessels demonstrate a conventional anatomy as they arise from the aortic arch. The origins of the common carotid arteries appear patent. The calibers and courses of both common carotid arteries are normal. The bifurcation regions appear normal bilaterally. The internal carotid arteries demonstrate normal course and caliber. Posterior circulation: The origins of the vertebral arteries appear patent. The proximal vertebral arteries are tortuous. More superior portions of both vertebral arteries demonstrate normal caliber, and join to form a normal appearing basilar artery. Miscellaneous: Subclavian arteries appear patent. Pre-contrast images through the neck show no soft tissue abnormalities. IMPRESSION: BRAIN MRI: No findings of acute or subacute infarction can be seen. No masses or abnormal enhancement can be seen. Note is made of age-appropriate brain parenchymal volume loss and chronic small vessel ischemic changes. BRAIN MR ANGIOGRAM: No significant intracranial arterial abnormality is seen. NECK MR ANGIOGRAM: Within the arteries of the neck, no hemodynamically significant stenosis can be seen. Dictated by: Matt Joy M.D. on 02/01/2019 at 15:21 Approved by: Matt Joy M.D. on 02/01/2019 at 15:27 CT scan - head: Radiologist's impression: [facility] DATE TYPE STATUS AUTHOR 02/01/19 18:39 Elizabeth Vick 02/01/19 14:13 Matt Joy 02/01/19 13:41 Casper Skelton Murray R 78, M0 1940 ADM LETTY, AC 214 -1 170.18cm 60.7kg BMI: 21.0kg/m? Search Chart ONSET Today 07:25 Jesus Manuel Shafer M 1940 [place] [address] CT Scan Report Signed Patient: HollisKen RMR#: [id number] : 9Acct:[id number] Age/Sex: 78 / MDate of Service: 02/01/19 Loc: ED Accession Number: [id number] Procedure: CT head/brain wo con Ordering Provider: Juanito Gold D.O. PROCEDURE: CT HEAD/BRAIN WO CON INDICATIONS: Code stroke. Possible TPA TECHNIQUE: Noncontrast 4.5 mm thick angled axial sections acquired from the foramen magnum to the vertex, with coronal and sagittal reformats. For radiation dose reduction, the following was used: automated exposure control, adjustment of mA and/or kV according to patient size. COMPARISON: [facility], MR, MR BRAIN WITHOUT CONTRAST, 11/21/2018, 17:06. FINDINGS: Image quality: Excellent. CSF spaces: Basal cisterns are patent. No extra-axial fluid collections. The ventricles are symmetric in size and shape. Brain: No intracranial bleeds or masses. There is a minimal cerebral volume loss for age, with resultant ventricular and sulcal prominence. There are minimal periventricular and deep white matter chronic small vessel ischemic changes. There is intracranial internal carotid artery atherosclerosis. Skull and face: Calvarium and visualized facial bones appear intact, without s uspicious lesions. Sinuses: Visualized sinuses and mastoids are clear. IMPRESSION: CT head without acute intracranial abnormalities. Stable age-related senescent changes. Findings were verbally communicated with Dr. Gold of the emergency department at 1404hrs. Dictated by: Casper Skelton M.D. on 02/01/2019 at 14:02 Approved by: Casper Skelton M.D. on 02/01/2019 at 14:06 ECG Data Attestation: I personally reviewed and interpreted this ECG as follows: Prior ECG tracings: not available for review Interpretation: Sinus pao 51. No ectopy or signs of ischemia MDM Narrative Medical decision making narrative: 78M with HTN, hyperlipidemia presents with dizziness sudden in onset and unprovoked. His NIHSS is 0, head CT clear, and MRI unremarkable. NO sugestion of peripheral cause. Unchanged by position. Remains dizzy when sitting still. Patient does have some episodes of HR in the 40s, largely in low 50s, but demonstrates no change in symptoms with fluctuation in HR Discharge Plan Departure Patient Disposition: Admitted as Observation Clinical Impression: TIA (transient ischemic attack) Discharge Date/Time: 02/01/19 19:00 Interventions: ED Discharge Assessment Last Done: 02/01/19 19:05 Admit Date/Time: 02/01/19 17:52 Admit Provider: Narendra Gillespie
[2019-02-01] MEDS: MECLIZINE HCL 12.5 MG TABLET 25 MG PO (17:04)
--- NOTE | 2019-02-01 17:32 | PC.NURSE ---
Blood pressures equal in arms, bilaterally
--- NOTE | 2019-02-01 17:53 | PC.NURSE ---
States feeling better, but still feels as if he is drifting to the right. Stumbled once upon getting out of bed. Otherwise ambulated with steady gait.
[2019-02-01 17:57] LABS: Urine Amphetamines Negative (Negative); Urine Barbiturates Negative (Negative); Urine Benzodiazepines Negative (Negative); Urine Cocaine Negative (Negative); Urine MDMA Negative (Negative); Urine Methadone Negative (Negative); Urine Methamphetamines Negative (Negative); Urine Morphine/Opi cutoff 2000 Negative (Negative); Urine Oxycodone Negative (Negative); Urine Phencyclidine Negative (Negative); Urine Tetrahydrocannabinol Negative (Negative); Urine Tricyclic Antidepressant Negative (Negative)
--- NOTE | 2019-02-01 18:26 | DI.ECHO.S_ITS ---
[place] [facility]---------+ [facility] +---------+ : : [address] : : : : [id number] : : : : Phone: [phone] Echocardiogram Report + + :Name: ARMEN LANDIN Study Date: 02/02/2019 Height: 67 in : :[facility] Exam Location: [facility] Weight: 130 lb : : Gender: Male BSA: 1.7 m2 : :: 1940 Age: 78 yrs BP: 138/61 mmHg: :Reason For Study: STROKE : :Ordering Physician: Elisa : :Hospitalist Performed By: Maci Bennett : :Referring: Narendra ESTRADA E : + + Interpretation Summary The left ventricle is normal in size, wall thickness, and systolic function without any focal wall motion abnormalities. The ejection fraction is estimated to be 60-65%. Diastolic parameters suggest a relaxation abnormality of the left ventricle, consistent with probable normal filling pressures. The right ventricle is normal in size and function. The right ventricular systolic pressure is estimated to be at least 23 mmHg based on an estimated right atrial pressure of 8 mm Hg. The left atrium is moderately dilated. The right atrium is severely dilated. There is no Doppler evidence for an interatrial shunt. There is mild to moderate aortic regurgitation. There is an eccentric jet of aortic insufficiency directed against the anterior mitral leaflet. There is no other significant valvular heart disease. The aortic root is mildly dilated. The ascending aorta is mildly enlarged. Procedure: A two-dimensional transthoracic echocardiogram with color flow and Doppler was performed. The study quality was technically adequate. There is no prior echocardiogram noted for this patient. The patient was in a bradycardic rhythm during the exam. Left Ventricle: The left ventricle is normal in size, wall thickness, and systolic function without any focal wall motion abnormalities. The ejection fraction is estimated to be 60-65%. Diastolic parameters suggest a relaxation abnormality of the left ventricle, consistent with probable normal filling pressures. Right Ventricle: The right ventricle is normal in size and function. Atria: The left atrium is moderately dilated. The right atrium is severely dilated. There is no Doppler evidence for an interatrial shunt. The interatrial septum bows toward right atrium consistent with elevated left atrial pressure. Mitral Valve: The mitral valve leaflets appear mildly thickened, but open well. There is trace mitral regurgitation. Aortic Valve: The aortic valve is trileaflet. There is mild aortic valve sclerosis. The aortic valve opens well. There is mild to moderate aortic regurgitation. There is an eccentric jet of aortic insufficiency directed against the anterior mitral leaflet. Tricuspid Valve: The tricuspid valve is normal. There is trace tricuspid regurgitation. The right ventricular systolic pressure is estimated to be at least 23 mmHg based on an estimated right atrial pressure of 8 mm Hg. Pulmonic Valve: The pulmonic valve leaflets are thin and pliable; valve motion is normal. There is mild pulmonic regurgitation. There is no other significant valvular heart disease. Great Vessels: The aortic root is mildly dilated. The ascending aorta is mildly enlarged. The aortic arch is normal in size. The pulmonary artery is normal size. The IVC is dilated (diameter is greater than 2.1 cm) yet it collapses greater than 50% with a sniff. This suggests a right atrial pressure of 8 mm Hg. Pericardium/ Pleura There is no pericardial effusion. There is no pleural effusion. MMode/2D Measurements & Calculations LVIDd: 5.0 cm LVOT diam: 2.1 cm LVIDs: 3.1 cm Ao root diam: 4.2 cm FS: 37.5 % asc Aorta Diam: 3.7 cm EPSS: 0.32 cm Ao Arch Diam (Prox Trans): 2.6 cm IVSd: 0.88 cm LVPWd: 0.72 cm LV sargent. diameter/BSA (cm/m^2): 3.0 LV sys. diameter/BSA (cm/m^2): 1.9 LA A2 area: 23.7 cm2 RA long axis: 5.2 cm LA A4 area: 23.4 cm2 RA area: 24.4 cm2 LA length (vol): 5.8 cm RA vol: 97.6 ml LA vol: 81.2 ml RA : 58.0 ml/m2 LA vol index: 48.2 ml/m2 IVC diam: 2.2 cm RVD1 (basal): 3.9 cm RVD2 (mid): 2.6 cm TAPSE: 2.4 cm Doppler Measurements & Calculations Ao V2 max: 145.0 cm/sec LVOT Max Donavon: 93.2 cm/sec Ao V2 mean: 87.9 cm/sec LV V1 max P.5 mmHg Ao max P.4 mmHg LV V1 VTI: 21.9 cm Ao mean P.6 mmHg ALLY(I,D): 2.5 cm2 Ao V2 VTI: 30.5 cm ALLY(V,D): 2.3 cm2 sev ratio: 0.72 ALLY indexed to BSA (cm^2/m^2): 1.5 MV E max donavon: 62.2 cm/sec TR max donavon: 195.5 cm/sec MV A max donavon: 78.1 cm/sec TR max P.3 mmHg MV E/A: 0.80 PA V2 max: 59.5 cm/sec Med Peak E' Donavon: 6.0 cm/sec PA V2 mean: 41.5 cm/sec E/E' med: 10.4 PA mean P.75 mmHg Lat Peak E' Donavon: 7.6 cm/sec PA Accel Time: 0.07 sec E/E' lat: 8.2 E/e' average: 9.3 MV dec time: 0.22 sec SV(LVOT): 76.8 ml Reading Physician:01:21 PM
--- NOTE | 2019-02-01 18:34 | P.HP_ITS ---
History of Present Illness Date Patient Seen: 02/01/19 Time Patient Seen: 18:30 Chief complaint: Light headed and dizzy Narrative: This is an 78-year-old male presenting with lightheadedness, ataxia and loss of balance. He describes dizziness but denies vertigo. He is generally healthy, treated for hyperlipidemia, hypertension and hypothyroidism followed by Dr. Jacinto in [place]. While riding in his car, with his driving this morning around 10:00 a.m., after returning from shopping in [place], he felt gradual onset of increased sleepiness, lightheadedness and when he got home and tried to walk into his kitchen he almost fell over from a loss of balance. He then sat down at the kitchen table, ate some food and made an appointment with his doctor but did not feel well enough to make it there and so came to the emergency department. He has received an MR stroke evaluation which is negative along with IV fluid and meclizine without much benefit although he does tell me that he feels better. He was just up in the emergency department, walking to the bathroom and felt very unsteady. He was described as listing to the left. At baseline he is quite hard of hearing. 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 He has never had a stroke or heart attack and has no history of neurological dysfunction. The myoclonus that I observed on my exam had not been noticeable to him. He does not have much restless leg type of symptoms at night according to his and himself. He has had no fevers, chest pain, difficulty talking or swallowing. He has noticed an unprovoked and unintentional 13 lb weight loss in the last 2 months. He was discussed with Neurology by the emergency physician and overnight observation on telemetry along with echocardiogram was recommended. Patient History Medical History (Updated 02/01/19 @ 18:35 by Narendra Gillespie MD) Hyperlipidemia (Acute) Hypertension (Acute) Hypothyroidism (acquired) (Acute) Surgical History (Updated 02/01/19 @ 18:36 by Narendra Gillespie MD) History of appendectomy (Acute) Family History (Updated 02/01/19 @ 18:36 by Narendra Gillespie MD) Mother Dementia Myocardial infarct Father No problems noted. Social History Smoking Status: Former smoker Family & Social History Family History (Updated 02/01/19 @ 18:36 by Narendra Gillespie MD) Mother Dementia Myocardial infarct Father No problems noted. 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 He does not smoke cigarettes, use marijuana or IV/illicit drugs. He drinks 1 scotch each night. He lives with his and attends with Dr. Jacinto in [place]. Safety & Behavioral: Feels Safe in Current Yes Environment Tobacco & Substance use: Smoking Status Former smoker alcohol intake frequency 0-2 drinks per day Substance Use Type does not use Meds Home Medications Medication Instructions Recorded Confirmed Type ASPIRIN (#ASPI-COR) 81 mg PO #0 03/01/12 History BENZONATATE (Tessalon) 200 mg PO TIDP #30 03/01/12 Rx LEVOTHYROXINE SODIUM (#LEVOTHROID 0.112 mg PO QDAY #0 03/01/12 History OFF MARKET) azithromycin [Zithromax Z-Tom] 250 mg PO QDAY #6 03/01/12 Rx hydrochlorothiazide 25 mg PO QDAY #0 03/01/12 History losartan 50 mg PO QDAY #0 03/01/12 History omeprazole 20 mg PO QDAY@0600 #0 03/01/12 History simvastatin 40 mg PO HS #0 03/01/12 History Allergies Allergy/AdvReac Type Severity Reaction Status Date / Time No Known Drug Allergies Allergy Verified 02/01/19 17:03 Review of Systems Review of Systems Positive for lightheadedness, loss of balance, unintentional weight loss. Negative for chest pain, shortness of breath, abdominal pain, coughing, nausea, vomiting, diarrhea, bleeding, dysuria, hematuria, joint pain, back pain, rash, seizures, headaches, difficulty talking, new allergies. All systems reviewed & are unremarkable except as noted in HPI and below Exam Vital Signs (past 8 hours): - 02/01/19 13:35 02/01/19 14:42 02/01/19 16:43 Temperature 98.2 F Pulse Rate 58 L 20 L 52 L Pulse Rate [Orthostatic Lying] Pulse Rate [Orthostatic Sitting] Pulse Rate [Orthostatic Standing] Respiratory Rate 16 16 20 Blood Pressure 160/67 H Blood Pressure [Left Arm] 156/53 H 143/52 H Blood Pressure [Orthostatic Lying] Blood Pressure [Orthostatic Sitting] Blood Pressure [Orthostatic Standing] Pulse Oximetry 99 100 100 02/01/19 17:32 02/01/19 17:53 Temperature Pulse Rate 55 L Pulse Rate [Orthostatic Lying] 49 L Pulse Rate [Orthostatic Sitting] 51 L Pulse Rate [Orthostatic Standing] 51 L Respiratory Rate 22 Blood Pressure Blood Pressure [Left Arm] Blood Pressure [Orthostatic Lying] 152/59 H Blood Pressure [Orthostatic Sitting] 153/54 H Blood Pressure [Orthostatic Standing] 148/56 H Pulse Oximetry 100 Oxygen Delivery Method Room Air Narrative Exam Narrative: He is alert, oriented x3 and in no apparent distress. He is very bright and able to engage at an exceptional level. He is quite hard of hearing but makes up for that with intense lip reading. Pupils are equally round and reactive to light and accommodation. Sclerae are pink and nonicteric. No lymph nodes are felt head neck or supraclavicular area. Extraocular muscles are intact. There is no thyromegaly. JVD is less than 6 cm. No carotid bruits are heard. Heart is regular rate and rhythm with occasionally early beats and without murmur. Lungs are clear to auscultation bilaterally. Abdomen is soft, bowel sounds positive, nontender, no organomegaly. Extremities have no ankle edema Skin has no rash or jaundice. Neuro exam. Cranial nerves 2-12 tested intact. Deep tendon reflexes are symmetric bilaterally. Finger to nose pointing is normal. Gait and balance are not tested but were reportedly unstable and listing to the left just a few minutes prior. He does have myoclonus with prolonged relaxation phase after pushing with his feet. This is also evident in his hands. He is not aware of the spasms that are seen and felt. With exertion/effort he is able to suppress the basilar reflex of blinking. There is no large motor clonus. He becomes initially confused and moves in opposite directions requested when testing lower extremity flexion and extension. Objective Labs Result Diagrams: 02/01/19 13:49 02/01/19 13:49 Labs: Laboratory Results - last 24 hr 02/01/19 02/01/19 02/01/19 13:49 13:49 13:49 WBC 5.3 RBC 4.45 L Hgb 13.8 Hct 39.8 L MCV 89.4 MCH 30.9 MCHC 34.6 RDW 13.2 Plt Count 143 L Neut % (Auto) 67.8 Lymph % (Auto) 21.7 L Gaston % (Auto) 7.0 Eos % (Auto) 2.2 Baso % (Auto) 1.3 Neut # (Auto) 3600 Lymph # (Auto) 1200 Gaston # (Auto) 400 Eos # (Auto) 100 Baso # (Auto) 100 PT 12.4 INR 1.1 APTT 31 Sodium 138 Potassium 3.9 Chloride 104 Carbon Dioxide 27 BUN 20 Creatinine 1.00 Estimated GFR > 60.0 BUN/Creatinine Ratio 20.0 Glucose 126 H Calcium 9.7 Urine Opiates Screen Ur Oxycodone Screen Urine Methadone Screen Ur Barbiturates Screen U Tricyclic Antidepress Ur Phencyclidine Scrn Ur Amphetamines Screen U Methamphetamines Scrn Ur MDMA Scrn (Ecstasy) U Benzodiazepines Scrn Urine Cocaine Screen U Marijuana (THC) Screen 02/01/19 17:51 WBC RBC Hgb Hct MCV MCH MCHC RDW Plt Count Neut % (Auto) Lymph % (Auto) Gaston % (Auto) Eos % (Auto) Baso % (Auto) Neut # (Auto) Lymph # (Auto) Gaston # (Auto) Eos # (Auto) Baso # (Auto) PT INR APTT Sodium Potassium Chloride Carbon Dioxide BUN Creatinine Estimated GFR BUN/Creatinine Ratio Glucose Calcium Urine Opiates Screen Negative Ur Oxycodone Screen Negative Urine Methadone Screen Negative Ur Barbiturates Screen Negative U Tricyclic Antidepress Negative Ur Phencyclidine Scrn Negative Ur Amphetamines Screen Negative U Methamphetamines Scrn Negative Ur MDMA Scrn (Ecstasy) Negative U Benzodiazepines Scrn Negative Urine Cocaine Screen Negative U Marijuana (THC) Screen Negative Assessment & Plan Assessment & Plan narrative: Lightheadedness -he will be observed with telemetry, and echocardiogram, further testing including TSH and magnesium level. Myoclonus -he seems to have an early/mild onset of a neurological condition, yet to be defined. -I suspect he will need neurological referral as an outpatient for EMG and to rule out ALS. -he will be observed on telemetry and magnesium along with TSH will be rechecked. Occult Weight Loss -he describes a 13 lb weight loss in the last 2 months, without intention or provocation. -check chest x-ray -check TSH -consider CT abdomen and pelvis. Hypertension -continue hydrochlorothiazide and losartan Hypothyroidism -continue levothyroxine -check TSH -he denies heat intolerance, cold intolerance, depression, slowed movements or palpitations. Hyperlipidemia -continue simvastatin
--- NOTE | 2019-02-01 18:39 | DI.RAD.S_ITS ---
PROCEDURE: XR CHEST 1V INDICATIONS: Unintentional Weight Loss TECHNIQUE: One view of the chest was acquired. COMPARISON: [facility], CR, CHEST 2VW, 09/13/2007, 11:18. [facility], CR, CHEST 2VW, 07/25/2012, 8:28. FINDINGS: Surgical changes and devices: None. Lungs and pleura: Lungs are clear. No pleural effusions or pneumothorax. Mediastinum: Mediastinal contours appear normal. Heart size is normal. Bones and chest wall: No suspicious bony lesions. Overlying soft tissues appear unremarkable. IMPRESSION: No acute cardiopulmonary disease. Dictated by: Chey Vick M.D. on 02/01/2019 at 19:33 Approved by: Chey Vick M.D. on 02/01/2019 at 19:34
[2019-02-01 19:30] LABS: TSH w/ Reflex to FT4 1.02 uIU/mL (0.47-4.68)
[2019-02-01] MEDS: DEXTROSE 5%-0.9% NS 1,000 ML 75 ML IV (19:42)
[2019-02-01] MEDS: SODIUM CHLORIDE 0.9% FLUSH 10 ML IV (21:00)
[2019-02-01] MEDS: SIMVASTATIN 40 MG TABLET PO (21:26)
[2019-02-02 05:19] VITALS: BP 140/60; PULSE 47; RESP 15; TEMP 36.3; O2SAT 99
[2019-02-02] MEDS: PANTOPRAZOLE 20 MG TABLET PO (05:22)
[2019-02-02] MEDS: LEVOTHYROXINE 112 MCG TABLET PO (05:22)
[2019-02-02 05:49] LABS: Magnesium 1.9 mg/dL (1.6-2.3)
[2019-02-02 07:00] VITALS: O2SAT 99
[2019-02-02 07:25] VITALS: BP 138/61; PULSE 51; RESP 16; TEMP 36.6; O2SAT 99
[2019-02-02] MEDS: DEXTROSE 5%-0.9% NS 1,000 ML 75 ML IV (09:07)
[2019-02-02] MEDS: ENOXAPARIN 40 MG/0.4 ML SYRINGE SUBCUT (09:08)
[2019-02-02] MEDS: LOSARTAN 50 MG TABLET PO (09:09)
[2019-02-02] MEDS: hydroCHLOROthiazide 25 MG TABLET PO (09:09)
--- NOTE | 2019-02-02 09:50 | PT.IIE ---
Surgical History (Last Updated 02/01/19 @ 18:36 by Narendra Gillespie MD) History of appendectomy (Acute) Medical History (Last Updated 02/01/19 @ 18:35 by Narendra Gillespie MD) Hyperlipidemia (Acute) Hypertension (Acute) Hypothyroidism (acquired) (Acute) Physical Therapy Inpatient Evaluation/Re-Eval M1 PT/OT-IP Prior Functional Status Start: 02/02/19 10:52 Freq: NEEDED Status: Active Protocol: Document 02/02/19 09:50 RCC (Rec: 02/02/19 11:03 [facility] [id number]) Medical Review Prior Functional Status Medical History Reviewed Yes Mobility and Gait indep. community ambulator without device Activities of Daily Living and IADL's indep I/ADLs Social History Household Members spouse Living Arrangements House Number of Floors (Floors) Two Floors Number of Stairs To Enter/Railing? 2 SE with rail, full flight indoors with rail to tv room and guest rooms but can live on main level Home Environment Standard Height Toilet Walk in Shower Tub/Shower Employment Status Retired Additional Social History Comment Pt presented to the ER with c/ o lightheadedness, ataxia, and loss of balance, sudden onset . MRI, CT and chest imaging all negative for acute findings. M2 PT-IP Current Condition Start: 02/02/19 10:52 Freq: NEEDED Status: Active Protocol: Document 02/02/19 09:50 RCC (Rec: 02/02/19 11:03 [facility] [id number]) Physical Therapy Current Condition Current Condition Evaluation Date 02/02/19 Treatment Diagnosis lightheaded/dizzy, unsteadiness with gait M3 PT-IP Subjective Start: 02/02/19 10:52 Freq: NEEDED Status: Active Protocol: Document 02/02/19 09:50 RCC (Rec: 02/02/19 11:03 [facility] [id number]) Subjective Physical Therapy Visit Type Type Initial Evaluation Visit Start Time 09:50 Visit Stop Time 10:20 Total Visit Minutes 30 Number of CORONER'S JUROR Visits 0 Physical Therapy Visit Comments Patient Comments pt states that he is no longer feeling the type of dizziness and lightheadedness he was experiencing M4 PT-IP Mobility and Gait Start: 02/02/19 10:52 Freq: NEEDED Status: Active Protocol: Document 02/02/19 09:50 RCC (Rec: 02/02/19 11:03 [facility] [id number]) PT-Bed Mobility Assessment Supine to Sit Supine to Sit Independent Sit to Supine Sit to Supine Independent Scooting Scooting to Edge of Bed Independent PT-Transfer Assessment Sit to and From Stand Sit to and from Stand Independent Equipment Transfer Assistive Device Gait Belt Transfers Transfer Destination Bed Transfer Technique Stand Step Pivot Transfer Ability Level of Assist Independent Gait Assessment Gait Gait Assistance Required: Independent Distance (Feet) 900 Assistive Devices Assistive Device Gait Belt Gait Deviations General Gait Pattern Within Normal Limits Comments Gait Comments mild unsteadiness with horizontal head movements during gait, no unsteadiness with vertical head movements Stair Climbing Assessment Evaluation Level of Assist On Stairs Independent Devices Stair Climbing Assistive Devices None Technique/Endurance Stair Climbing Direction Ascend and Descend Stair Climbing Technique Step Over Step Number of Steps Climbed 3 Query Text: Stair Climbing Set # Repetitions (reps) 3 PT-Balance Assessment Sitting Balance and Reactions Static Sitting Balance Ability Good Dynamic Sitting Balance Ability Good Standing Balance and Reactions Static Standing Balance Ability Good Dynamic Standing Balance Ability Fair Device Used none Balance Tests Romberg >30 sec Tandem Standing >15 sec each M5 PT-IP Objective Assessments Start: 02/02/19 10:52 Freq: NEEDED Status: Active Protocol: Document 02/02/19 09:50 RCC (Rec: 02/02/19 11:03 [facility] [id number]) Orientation Orientation/Cognition Level of Alertness Alert Strength Lower Extremity Strength Assessment Within Functional Limits Coordination Assessment Gross Coordination Gross Coordination WNL Assessment Foot Tapping Test Normal Performance Heel on Shabazz Test Normal Performance Sensation Assessment Sensation Gross Sensation WNL Muscle Tone Muscle Tone WNL Yes M6 PT-IP Treatment Start: 02/02/19 10:52 Freq: NEEDED Status: Active Protocol: Document 02/02/19 09:50 RCC (Rec: 02/02/19 11:03 [facility] [id number]) Physical Therapy Treatment Exercises Exercises Ankle Pumps Education Education Provided Safety Other Treatments Other Treatment Performed BP 140/57 supine R arm BP 143/63 standing R am *both at start of tx M7 PT-IP Assessment and Plan Start: 02/02/19 10:52 Freq: NEEDED Status: Active Protocol: Document 02/02/19 09:50 RCC (Rec: 02/02/19 11:03 [facility] [id number]) PT Summary Assessment and Plan Potential Rehabilitation Potential Good Status of Condition at Evaluation Stable Summary Impairments Balance Gait Progress Towards Goals Safe For Discharge Assessment Summary Pt at this time with no increase c/o dizziness or lightheadedness with activity. Pt does have mild lateral sway with horizontal head movements while ambulating, but static balance appears to be WNL. Pt's BP does not indicate orthostatic hypotension at this time. Overall, pt appears to be near his baseline of functional mobility. No further needs in the acute PT setting at this time. Pt may benefit from OP PT for dynamic gait and balance stability. Frequency of Treatment Frequency Of Treatment Discharge Recommendations To Nursing Amount of Assist Needed Standby Assistance Discharge Recommendations PT Discharge Recommendations Home with Assistance Outpatient PT
--- NOTE | 2019-02-02 10:32 | PC.NURSE ---
Addendum entered by Alexsandra Aldana R.N. 02/02/19 10:36: PT worked with pt in room and hallways at 1010. No changes to pt care at this time. Original Note: AM shift pt AOx, pleasant, and receptive to care. SBA to BR with IV pole. Reports mild, intermittent dizziness that has been improving since his admission last evening. pt states that this is a chronic issues that his PCP is aware of. pt states he had a recent fall at the gym due to an unfamiliar exercise. No major injuries resulted, healing superficial scrape to left upper arm. Plan is to have echocardiogram completed today and discharge afterwards. no pain or nausea reported. Intake and output ample
[2019-02-02 12:05] VITALS: BP 143/63; PULSE 88; RESP 16; TEMP 36.5; O2SAT 97
--- NOTE | 2019-02-02 13:12 | CM.DANOTE ---
Discharge Planning/Care Management DCP: assessment: case received, EMR reviewed. Case discussed in Team Rounds. PT was ordered and ECHO was planned. Met now with pt and introduced self and role. Pt is found dozing in bed over a crossword puzzle. He wakens instantly to voice. 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 PCP: Dr. Jason Jacinto/Aquiles Feldman Payer: Medicare and [facility] Admission status: OBS: confirmed by UR OLLIE Lawson. Pt lives with his in [place] and is functionally independent in the community at baseline and without an assistive device. PT Sanchez did see pt today and cleared him from further therapy need (beyond consideration of OUTPT if his PCP agrees to same.) Dr. Gillespie has noted that an outpt followup with a neurologist might be indicated but he has not discussed this with pt at this time. Pt is aware that he will likely d/c to home today after ECHO and he says he plans to follow up with Dr. Jacinto. He says he is eager to be ok'd for d/c and to get back home. Will follow prn. CM Discharge Assessment Start: 02/02/19 13:11 Freq: Status: Active Protocol: Document 02/02/19 13:11 ITV (Rec: 02/02/19 13:12 ITV [id number]) Discharge Planning Assessment Advance Directives? No History Provided By Patient Medical Record Prior Living Arrangements House Household Members spouse Independent with ADL's Yes Is patient alert and oriented? Yes Whiteboard Updated in Patient Room with Yes name and ext. # of Wood Gluer Review Status In Process Next Review Type Continued Stay Review
--- NOTE | 2019-02-02 14:54 | PM.DS.1 ---
History of Present Illness Date Patient Seen: 02/02/19 Time Patient Seen: 14:54 Chief complaint: Light headed and dizzy Narrative: This is an 78-year-old male presenting with lightheadedness, ataxia and loss of balance. He describes dizziness but denies vertigo. He is generally healthy, treated for hyperlipidemia, hypertension and hypothyroidism followed by Dr. Jacinto in [place]. While riding in his car, with his driving this morning around 10:00 a.m., after returning from shopping in [place], he felt gradual onset of increased sleepiness, lightheadedness and when he got home and tried to walk into his kitchen he almost fell over from a loss of balance. He then sat down at the kitchen table, ate some food and made an appointment with his doctor but did not feel well enough to make it there and so came to the emergency department. He has received an MR stroke evaluation which is negative along with IV fluid and meclizine without much benefit although he does tell me that he feels better. He was just up in the emergency department, walking to the bathroom and felt very unsteady. He was described as listing to the left. At baseline he is quite hard of hearing. 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 He has never had a stroke or heart attack and has no history of neurological dysfunction. The myoclonus that I observed on my exam had not been noticeable to him. He does not have much restless leg type of symptoms at night according to his and himself. He has had no fevers, chest pain, difficulty talking or swallowing. He has noticed an unprovoked and unintentional 13 lb weight loss in the last 2 months. He was discussed with Neurology by the emergency physician and overnight observation on telemetry along with echocardiogram was recommended. Discharge Providers Date of admission: 02/01/19 17:52 Discharge Date: 02/02/19 Primary care physician: Jason Jacinto MD Consults: 02/02/19 08:27 Consult to Physical Therapy Evaluate & Treat Comment: Myoclonus and balance problems Physician Instructions: Evaluate and Treat Discharge provider: Narendra Gillespie MD Summary Discharge Diagnosis: Lightheadedness Myoclonus Occult Weight Loss Hypertension Hypothyroidism Hyperlipidemia Hospital Course: Lightheadedness -symptoms resolved today. He was evaluated for safety by Physical therapy. His echocardiogram did not show any obvious cause. His brain MR stroke protocol yesterday did not show any cause. -the triad of lightheadedness, occult weight loss and myoclonus suggests some systemic process, perhaps a progressive neurological disorder. This will be deferred to neurological consultation as an outpatient. -the echocardiogram shows mild to moderate aortic regurgitation with an ejection fraction of 60-65%. Myoclonus -he seems to have an early/mild onset of a neurological condition, yet to be defined. -I suspect he will need neurological referral as an outpatient for EMG and to rule out ALS. -his magnesium level, electrolytes and TSH were all normal. -this finding of myoclonus in the lower extremities was confirmed again today. Occult Weight Loss -he describes a 13 lb weight loss in the last 2 months, without intention or provocation. -his chest x-ray and TSH were normal. This remains unexplained. Consider abdominal pelvic CT/colon cancer screening. Hypertension -continue losartan Hypothyroidism -he was continued on his usual levothyroxine and had a normal TSH. This does not appear to be contributing to his occult weight loss. Hyperlipidemia -continue simvastatin Status at Discharge Cognitive/behavioral status at discharge: at baseline, oriented Functional status at discharge: independent ambulation Overall status at discharge: patient is back to baseline Time Spent with Patient Less than 30 minutes Exam Vital Signs (past 8 hours): - 02/02/19 07:00 02/02/19 07:25 Temperature 97.8 F Pulse Rate 51 L Respiratory Rate 16 Blood Pressure 138/61 Pulse Oximetry 99 99 Oxygen Delivery Method Room Air Narrative Exam Narrative: He is alert and oriented x3. There is no apparent distress. Heart is regular rate and rhythm without murmur. Lungs are clear to auscultation bilaterally. Extremities have no ankle edema. Abdomen is soft, bowel sounds positive, nontender, no organomegaly. Neurological exam. Symmetric equal advertising layout worker strength. No gait or balance abnormality reported. Myoclonus noted after strength testing in both ankles, unchanged from yesterday. Objective Labs Result Diagrams: 02/01/19 13:49 02/01/19 13:49 Labs: Laboratory Results - last 24 hr 02/01/19 02/01/19 02/01/19 13:49 13:49 13:49 Sodium 138 Potassium 3.9 Chloride 104 Carbon Dioxide 27 BUN 20 Creatinine 1.00 Estimated GFR > 60.0 BUN/Creatinine Ratio 20.0 Glucose 126 H Calcium 9.7 Magnesium 2.0 TSH 1.02 Urine Opiates Screen Ur Oxycodone Screen Urine Methadone Screen Ur Barbiturates Screen U Tricyclic Antidepress Ur Phencyclidine Scrn Ur Amphetamines Screen U Methamphetamines Scrn Ur MDMA Scrn (Ecstasy) U Benzodiazepines Scrn Urine Cocaine Screen U Marijuana (THC) Screen 02/01/19 02/02/19 17:51 04:59 Sodium Potassium Chloride Carbon Dioxide BUN Creatinine Estimated GFR BUN/Creatinine Ratio Glucose Calcium Magnesium 1.9 TSH Urine Opiates Screen Negative Ur Oxycodone Screen Negative Urine Methadone Screen Negative Ur Barbiturates Screen Negative U Tricyclic Antidepress Negative Ur Phencyclidine Scrn Negative Ur Amphetamines Screen Negative U Methamphetamines Scrn Negative Ur MDMA Scrn (Ecstasy) Negative U Benzodiazepines Scrn Negative Urine Cocaine Screen Negative U Marijuana (THC) Screen Negative Discharge Plan Discharge Plan Patient Disposition: Home Discharge comment: Follow-up soon with . Discuss Neurology referrals for myoclonus and Cardiology referrals for an abnormal EKG and moderate mitral regurgitation with your primary care doctor soon Discharge Med Rec/Prescriptions Prescriptions: New aspirin 81 mg Tablet,Delayed Release (Dr/Ec) 81 mg PO BEDTIME Qty: 30 RF: 0 Continued losartan 50 MG tablet 50 mg PO QDAY Qty: 0 RF: 0 simvastatin 40 MG tablet 40 mg PO HS Qty: 0 RF: 0 levothyroxine 112 mcg Tablet 112 mcg PO DAILY RF: 0 Follow up/Referrals: Jason Jacinto MD [Primary Care Provider] - Visit Report/Discharge Packet Instructions: Echocardiogram Discharge Data Primary Care Provider: Jason Jacinto Attending Provider: Narendra Gillespie Admit Date/Time: 02/01/19 17:52 Discharges patient from system. Discharge Date/Time: 02/02/19 15:51 Quality VTE Deep Vein Thrombosis/Pulmonary Embolism Present on Admission: No
--- NOTE | 2019-02-02 16:03 | PC.NURSE ---
Pt ambulatory to nurse's station @ beginning of shift to inform staff MD has discharged pt to home. Change of shift takes place following report and pt's spouse now present with pt in pt's room 214. ICU notified of discharge to home and tele dc'd. IV x 2 dc'd intact. Pt is ambulatory independently and able to dress self. States no valuables in safe. Has all personal effects in possession. Discharge instructions given to pt and pt's spouse in written and verbal format. Pt left hospital in stable condition (accompanied by spouse) ambulatory with this personal lines underwriter as escort to private vehicle
== END 2019-02-02 15:51 | disposition home or self-care (01) ==
LOC: ED 13:43 → AC 17:52
PROVIDERS: Admitting Provider Family Medicine; Emergency Provider Emergency Medicine; PCP Family Medicine; Visit Provider Family Medicine
DX: R42 Dizziness and giddiness (principal); I10 Essential (primary) hypertension; E78.5 Hyperlipidemia, unspecified; K21.9 Gastro-esophageal reflux disease without esophagitis; R27.0 Ataxia, unspecified; E03.9 Hypothyroidism, unspecified; Z87.891 Personal history of nicotine dependence; R63.4 Abnormal weight loss; G25.3 Myoclonus; I34.0 Nonrheumatic mitral (valve) insufficiency
CPT/HCPCS: 36415; 36591; 70450; 70548; 70553; 71045; 80048; 80305; 81003; 82962; 83735; 84443; 85025; 85610; 85730; 93005; 93306; 96360; 96361; 96372; 97161; 99284; 99285; G0378; A9579; J1650

== ENCOUNTER → 2019-10-29 13:00 | Outpatient (CLI) | payer MEDICARE, OTHER, SELFPAY ==
[2019-02-01 18:55] VITALS: BMI 20.3
== END ==
PROVIDERS: PCP Family Medicine; Referring Provider Physical Medicine & Rehabilitation; Visit Provider Physical Medicine & Rehabilitation
DX: M54.12 Radiculopathy, cervical region (principal)

== ENCOUNTER → 2019-10-30 19:52 | Outpatient (CLI) | payer MEDICARE, OTHER, SELFPAY ==
[2019-02-01 18:55] VITALS: BMI 20.3
== END ==
PROVIDERS: PCP Family Medicine; Referring Provider Family Medicine; Visit Provider Physical Medicine & Rehabilitation
DX: M54.12 Radiculopathy, cervical region (principal)

== ENCOUNTER → 2019-10-30 20:28 | Outpatient (CLI) | payer MEDICARE, OTHER, SELFPAY ==
[2019-02-01 18:55] VITALS: BMI 20.3
--- NOTE | 2019-10-30 | DI.MRI.S_ITS ---
PROCEDURE: MR CERVICAL SPINE W CON INDICATIONS: C SPINE TECHNIQUE: Noncontrast sagittal T1 spin echo and T2 fast spin echo, sagittal STIR, foraminal oblique sagittal T2 fast spin echo, axial gradient echo or T2 fast spin echo through the cervical spine. After the administration of contrast, axial and sagittal T1 spin echo with fat saturation through the cervical spine. COMPARISON: Outside Film, CR, XR CERVICAL SPINE 2 OR 3 VIEWS, 09/13/2019, 17:22. FINDINGS: Image quality: Excellent. Alignment and curvature: Straightening of the normal lordotic curvature. Grade 1 anterolisthesis of C4 on C5 and grade 1 retrolisthesis of C5 on C6. Marrow: Multilevel degenerative endplate sclerosis and spurring. Diffuse facet arthropathy. Spinal cord: Visualized spinal cord has normal size and signal. No cerebellar tonsillar herniation. No abnormal intramedullary enhancement. Paraspinous soft tissues: No paravertebral masses or suspicious enhancement. C2-3: Mild central canal narrowing. Severe left foraminal stenosis with nerve root compression moderate right foraminal narrowing with nerve root compression. C3-4: Mild central canal narrowing. Mild right foraminal stenosis. Moderate-severe left foraminal narrowing with nerve root compression C4-5: Mild central canal narrowing. Moderate to severe foraminal stenosis on the right with nerve root compression. Moderate left foraminal narrowing, with possible slight nerve root compression C5-6: Moderate canal stenosis. Severe bilateral foraminal stenosis with nerve root compression. C6-7: Moderate to severe canal narrowing. Severe bilateral foraminal stenosis with nerve root compression C7-T1: No canal stenosis seen. Moderate right foraminal narrowing with nerve root compression. Severe left foraminal stenosis with nerve root compression. IMPRESSION: Severe multilevel cervical spondylosis and facet arthropathy. Moderate to severe canal stenosis at C5-C6 and C6-C7. Numerous bilateral foraminal stenoses as detailed above by spinal level Straightening of the normal lordotic curvature. Dictated by: Palomo Acuna M.D. on 10/31/2019 at 10:14 Approved by: Palomo Acuna M.D. on 10/31/2019 at 10:22
== END ==
PROVIDERS: PCP Family Medicine; Referring Provider Physical Medicine & Rehabilitation; Visit Provider Physical Medicine & Rehabilitation
DX: M47.22 Other spondylosis with radiculopathy, cervical region (principal); M48.02 Spinal stenosis, cervical region
CPT/HCPCS: 72142